=== PATIENT | male | born 1980 | race American Indian/Alaskan Native ===

== ENCOUNTER 2019-01-22 00:09 | Emergency (ER) | payer OTHER ==
[2019-01-22 00:27] VITALS: BP 130/82
[2019-01-22 00:54] LABS: Bilirubin,Urine NEG (Negative); Blood,Urine NEG (Negative); Color,Urine Yellow (Yellow); Mucus,Urine 1+ /HPF; Protein,Urine <15 mg/dL mg/dL (Negative); Urobilinogen,Urine < 2.0 mg/dL (<2.0)
--- NOTE | 2019-01-22 00:54 | Emergency Department Report ---
ED Male HPI - General Chief complaint: Urogenital-Male Stated complaint: PENILE PAIN Time Seen by Provider: 01/22/19 00:49 Source: patient Mode of arrival: Ambulatory Limitations: No Limitations - History of Present Illness Initial comments: 38-year-old -[place] male presents to the emergency room for testicular pain that has been off and on for a few months. Patient will reports tonight the pain has been constant and it woke him up from sleep tonight. Patient denies any swelling denies any redness denies any penile discharge or dysuria. Patient reports his pain is 7 out of 10 but declines pain medication at this time. MD Complaint: testicle pain Onset/Timin -: month(s) Location: right testicle Severity scale (0 -10): 7 Consistency: constant (tonight) Improves with: none Worsens with: other (resting) denies other symptoms. denies: discharge, swelling, urinary retention, blood in urine, dysuria, fever, nausea/vomiting - Related Data Previous Rx's Medication Instructions Recorded Last Taken Type Ibuprofen [Motrin 600 MG tab] 600 mg PO Q8H PRN #30 tablet 01/22/19 Unknown Rx Allergies Allergy/AdvReac Type Severity Reaction Status Date / Time No Known Allergies Allergy Verified 01/22/19 00:12 ED Review of Systems ROS: Stated complaint: PENILE PAIN Other details as noted in HPI Comment: All other systems reviewed and negative ED Past Medical Hx - Social History Smoking Status: Current Every Day Smoker - Medications Home Medications: Home Medications Medication Instructions Recorded Confirmed Last Taken Type Ibuprofen [Motrin 600 MG tab] 600 mg PO Q8H PRN #30 tablet 01/22/19 Unknown Rx ED Physical Exam - General Limitations: No Limitations General appearance: alert, in no apparent distress - Head Head exam: Present: atraumatic, normocephalic - Eye Eye exam: Present: normal appearance - ENT ENT exam: Present: mucous membranes moist - GI/Abdominal GI/Abdominal exam: Present: soft. Absent: distended - Rectal Rectal exam: Present: deferred - exam: Present: testicular tenderness (right). Absent: urethral discharge, scrotal swelling, circumcision External exam: Present: normal external exam. Absent: erythema, swelling, lesions - Extremities Exam Extremities exam: Present: normal inspection, full ROM - Neurological Exam Neurological exam: Present: alert, oriented X3, normal gait - Psychiatric Psychiatric exam: Present: normal affect, normal mood - Skin Skin exam: Present: warm, dry, intact, normal color. Absent: rash ED Course Vital Signs 01/22/19 00:24 Temperature 98.0 F Pulse Rate 107 H Respiratory 16 Rate Blood Pressure 130/82 O2 Sat by Pulse 98 Oximetry ED Medical Decision Making - Radiology Data Radiology results: report reviewed Patient: ANNELIESE FUNEZ MR#: [id number] : 1980 Acct:[id number] Age/Sex: 38 / M ADM Date: 01/22/19 Loc: ED Attending Dr: Ordering Physician: AMAURY WIGGINS Date of Service: 01/22/19 Procedure(s): US testicular doppler comp Accession Number(s): [id number] cc: AMAURY WIGGINS ULTRASOUND SCROTUM INDICATION / CLINICAL INFORMATION: right testicle pain. COMPARISON: None available. FINDINGS -- RIGHT TESTIS: Size = 4.7 x 2.3 x 3.6 cm. - Appearance: No significant abnormality. - Cyst or Mass: None. - Color Doppler Flow: No significant abnormality. EPIDIDYMIS: Tiny 3 mm epididymal cyst. HYDROCELE: None. VARICOCELE: None demonstrated. FINDINGS -- LEFT TESTIS: Size = 3.4 x 1.5 x 2.8 cm. - Appearance: No significant abnormality. - Cyst or Mass: None. - Color Doppler Flow: No significant abnormality. EPIDIDYMIS: No significant abnormality. HYDROCELE: None. VARICOCELE: Small left varicocele. ADDITIONAL FINDINGS: None. IMPRESSION: 1. No acute findings. No evidence of torsion. 2. Tiny right epididymal cyst. 3. Small left varicocele. Signer Name: Boris Gonzalez MD Signed: 01/22/2019 1:50 AM Workstation Name: [id number] Transcribed By: ASHWINI Dictated By: Boris Gonzalez MD Electronically Authenticated By: Boris Gonzalez MD Signed Date/Time: 01/22/19149 DD/ 7 TD/TT: - Medical Decision Making 38-year-old -[place] male presents to the emergency room for testicular pain that has been off and on for a few months. Patient will reports tonight the pain has been constant and it woke him up from sleep tonight. Patient denies any swelling denies any redness denies any penile discharge or dysuria. Patient reports his pain is 7 out of 10 but declines pain medication at this time. Testicular ultrasound with Doppler complete has been ordered. Ultrasound of right testicle shows a epididymal cysts. Patient be discharged on ibuprofen and referral to urology. Critical care attestation.: If time is entered above; I have spent that time in minutes in the direct care of this critically ill patient, excluding procedure time. ED Disposition Clinical Impression: Testicle pain Disposition: DC-01 TO HOME OR SELFCARE Is pt being admited?: No Does the pt Need Aspirin: No Condition: Stable Instructions: Testicle Pain (ED) Additional Instructions: Cyst on right epididymal referral to urology. Prescriptions: Ibuprofen [Motrin 600 MG tab] 600 mg PO Q8H PRN #30 tablet PRN Reason: Pain Referrals: PRIMARY CARE, [Primary Care Provider] - 3-5 Days MK DE LOS SANTOS MD [Staff Physician] - 3-5 Days
--- NOTE | 2019-01-22 01:54 | Ultrasound Report ---
ULTRASOUND SCROTUM INDICATION / CLINICAL INFORMATION: right testicle pain. COMPARISON: None available. FINDINGS -- RIGHT TESTIS: Size = 4.7 x 2.3 x 3.6 cm. - Appearance: No significant abnormality. - Cyst or Mass: None. - Color Doppler Flow: No significant abnormality. EPIDIDYMIS: Tiny 3 mm epididymal cyst. HYDROCELE: None. VARICOCELE: None demonstrated. FINDINGS -- LEFT TESTIS: Size = 3.4 x 1.5 x 2.8 cm. - Appearance: No significant abnormality. - Cyst or Mass: None. - Color Doppler Flow: No significant abnormality. EPIDIDYMIS: No significant abnormality. HYDROCELE: None. VARICOCELE: Small left varicocele. ADDITIONAL FINDINGS: None. IMPRESSION: 1. No acute findings. No evidence of torsion. 2. Tiny right epididymal cyst. 3. Small left varicocele. Signer Name: Boris Gonzalez MD Signed: 01/22/2019 1:50 AM Workstation Name: [id number]
== END 2019-01-22 02:22 | disposition home or self-care (01) ==
LOC: ED 00:09
DX: N50.811 Right testicular pain (principal); F17.200 Nicotine dependence, unspecified, uncomplicated
CPT/HCPCS: 81001; 93975